=== PATIENT | male | born 1940 | race Caucasian/White ===

== ENCOUNTER 2023-11-24 15:23 | Outpatient (CLI) | payer MEDICARE, OTHER ==
--- NOTE | 2023-11-24 17:21 | XRAY Report ---
PROCEDURE: Calcaneus 2+V LT INDICATIONS: LEFT HEEL WOUND TECHNIQUE: Two views of the calcaneus were acquired. COMPARISON: None. FINDINGS: Bones: No fractures or dislocations. No suspicious bony lesions. Soft tissues: Shallow ulceration involving posterior aspect of left heel is seen. No suspicious calci fications. Achilles tendon appears normal. IMPRESSION: No acute bony abnormality. No radiographic evidence of osteomyelitis. Shallow ulceration over posteri or aspect of left heel. Reviewed by: Rigo Dewey MD on 11/24/2023 5:20 PM PDT Approved by: Rigo Dewey MD on 11/24/2023 5:20 PM PDT Station ID: [id number]
== END 2023-11-24 15:24 | disposition home or self-care (01) ==
LOC: DI 15:23
PROVIDERS: ATTEND Family Medicine
DX: E11.621 Type 2 diabetes mellitus with foot ulcer (principal); L97.422 Non-pressure chronic ulcer of left heel and midfoot with fat layer exposed; L08.9 Local infection of the skin and subcutaneous tissue, unspecified

== ENCOUNTER 2023-11-24 15:53 | Outpatient (CLI) | payer MEDICARE, OTHER ==
[2023-11-24 16:07] LABS: BASOPHILS # (AUTO) 0.1 10^3/uL (0.0-0.1); BASOPHILS % (AUTO) 0.4 %; EOSINOPHILS # (AUTO) 0.1 10^3/uL (0.0-0.7); EOSINOPHILS % (AUTO) 0.4 %; HCT - HEMATOCRIT 41.5 % (42.0-52.0); LYMPHOCYTES # (AUTO) 1.5 10^3/uL (1.5-3.5); LYMPHOCYTES % (AUTO) 8.6 %; MEAN CORPUSCULAR HEMOGLOBIN 30.7 pg (27.0-31.0); MEAN CORPUSCULAR HGB CONC 31.3 g/dL (32.0-36.0); MEAN CORPUSCULAR VOLUME 97.9 fL (80.0-94.0); MEAN PLATELET VOLUME 10.6 fL (7.4-11.4); MONOCYTES # (AUTO) 1.2 10^3/uL (0.0-1.0); MONOCYTES % (AUTO) 6.8 %; NEUTROPHILS # (AUTO) 14.2 10^3/uL (1.5-6.6); NEUTROPHILS % (AUTO) 83.4 %; PLT - PLATELET COUNT 367 10^3/uL (130-450); RED BLOOD COUNT 4.24 10^6/uL (4.70-6.10)
[2023-11-24 16:20] LABS: CRP - C-REACTIVE PROTEIN 0.5 mg/dL (<0.5)
[2023-11-24 16:25] LABS: ESTIMATED AVERAGE GLUCOSE 258 mg/dL (70-100); HEMOGLOBIN A1c% 10.6 % (4.27-6.07)
[2023-11-24 17:14] LABS: ALBUMIN 3.8 g/dL (3.2-5.5); ALBUMIN/GLOBULIN RATIO 1.3 (1.0-2.2); BILIRUBIN,TOTAL 0.4 mg/dL (0.2-1.0); CALCIUM 9.8 mg/dL (8.5-10.3); CREATININE 0.9 mg/dL (0.6-1.3); POTASSIUM 4.6 mmol/L (3.5-4.5); TOTAL PROTEIN 6.8 g/dL (6.4-8.9)
== END 2023-11-24 15:54 | disposition home or self-care (01) ==
LOC: LAB 15:53
PROVIDERS: ATTEND Family Medicine
DX: E11.621 Type 2 diabetes mellitus with foot ulcer (principal); L97.422 Non-pressure chronic ulcer of left heel and midfoot with fat layer exposed; L08.9 Local infection of the skin and subcutaneous tissue, unspecified
CPT/HCPCS: 36415; 80053; 83036; 85025; 85651; 86140

== ENCOUNTER 2024-02-10 10:59 | Outpatient (CLI) | payer MEDICARE, OTHER ==
[2024-02-10 11:15] LABS: BASOPHILS # (AUTO) 0.1 10^3/uL (0.0-0.1); BASOPHILS % (AUTO) 0.5 %; EOSINOPHILS # (AUTO) 0.1 10^3/uL (0.0-0.7); EOSINOPHILS % (AUTO) 0.9 %; HCT - HEMATOCRIT 40.5 % (42.0-52.0); HGB - HEMOGLOBIN 12.4 g/dL (14.0-18.0); LYMPHOCYTES # (AUTO) 1.4 10^3/uL (1.5-3.5); LYMPHOCYTES % (AUTO) 12.6 %; MEAN CORPUSCULAR HGB CONC 30.6 g/dL (32.0-36.0); MEAN CORPUSCULAR VOLUME 94.8 fL (80.0-94.0); MEAN PLATELET VOLUME 10.8 fL (7.4-11.4); MONOCYTES # (AUTO) 0.5 10^3/uL (0.0-1.0); MONOCYTES % (AUTO) 4.8 %; NEUTROPHILS # (AUTO) 8.7 10^3/uL (1.5-6.6); NEUTROPHILS % (AUTO) 80.9 %; PLT - PLATELET COUNT 338 10^3/uL (130-450); RED BLOOD COUNT 4.27 10^6/uL (4.70-6.10); RED CELL DISTRIBUTION WIDTH 13.8 % (12.0-15.0); WHITE BLOOD COUNT 10.8 x10^3/uL (4.8-10.8)
[2024-02-10 12:50] LABS: ESTIMATED AVERAGE GLUCOSE 226 mg/dL (70-100); HEMOGLOBIN A1c% 9.5 % (4.27-6.07)
[2024-02-10 12:57] LABS: ALBUMIN 3.9 g/dL (3.2-5.5); ALBUMIN/GLOBULIN RATIO 1.1 (1.0-2.2); BILIRUBIN,TOTAL 0.4 mg/dL (0.2-1.0); CALCIUM 9.9 mg/dL (8.5-10.3); CREATININE 0.8 mg/dL (0.6-1.3); MAGNESIUM 1.4 mg/dL (1.7-2.3); POTASSIUM 4.5 mmol/L (3.5-4.5); TOTAL PROTEIN 7.3 g/dL (6.4-8.9)
== END 2024-02-10 11:00 | disposition home or self-care (01) ==
LOC: LAB 10:59
PROVIDERS: ATTEND Family Medicine
DX: I10 Essential (primary) hypertension (principal); E55.9 Vitamin D deficiency, unspecified; E11.29 Type 2 diabetes mellitus with other diabetic kidney complication; G20.C Parkinsonism, unspecified; L97.509 Non-pressure chronic ulcer of other part of unspecified foot with unspecified severity
CPT/HCPCS: 36415; 80053; 82306; 82607; 82746; 83036; 83735; 85025

== ENCOUNTER 2024-04-13 20:58 | Outpatient (CLI) | payer MEDICARE, OTHER | END 2024-04-13 23:59 | disposition critical access hospital (66) | LOC: EMS 20:58 | DX: S01.01XA Laceration without foreign body of scalp, initial encounter (principal); W05.0XXA Fall from non-moving wheelchair, initial encounter; Y93.89 Activity, other specified; Y92.000 Kitchen of unspecified non-institutional (private) residence as the place of occurrence of the external cause | CPT/HCPCS: A0425; A0429 ==

== ENCOUNTER 2024-04-13 21:19 | Emergency (ER) | payer MEDICARE, OTHER ==
--- NOTE | 2024-04-13 21:31 | ED Physician Documentation ---
History of Present Illness - Stated complaint Stated Complaint: GLF/LAC TO HEAD - Chief complaint Chief Complaint: Trauma Hd/Nk - History obtained from History obtained from: EMS - Additonal information Additional information: 83-year-old male with history of Alzheimer's dementia presents for fall from wheelchair with head injury. Patient fell forward out of his wheelchair and struck his head against the ground. No reported loss of consciousness, patient is not on blood thinners. Patient pleasantly demented on arrival, he denies pain, does not remember falling. Review of Systems Unable to obtain: Dementia PD PAST MEDICAL HISTORY - Present Medications Home Medications: Ambulatory Orders Medication Instructions Recorded Confirmed Carbidopa/Levodopa [Rytary ER PO 5XD 11/17/23 48.75 mg-195 mg Cap] Cholecalciferol (Vitamin D3) 11/17/23 [Vitamin D3] Donepezil HCl [Aricept] 10 mg PO DAILY 11/17/23 11/17/23 Dulaglutide [Trulicity] 0.75 mg SUBQ DAILY 11/17/23 11/17/23 Empagliflozin [Jardiance] 25 mg PO DAILY 11/17/23 11/17/23 Finasteride [Proscar] 5 mg PO 11/17/23 Metformin HCl 1,000 mg PO BID 11/17/23 11/17/23 Rasagiline [Azilect] 11/17/23 Simvastatin [Zocor] 20 mg PO QPM 11/17/23 11/17/23 Tamsulosin [Flomax] 0.4 mg PO DAILY 11/17/23 11/17/23 Vitamin B Complex 11/17/23 Amox/Clav 875/125 [Augmentin 1 tablet PO Q12H 14 Days #28 tablet 12/30/23 875/125 Tab] Amox/Clav 875/125 [Augmentin 1 tablet PO Q12H 14 Days #28 tablet 01/27/24 875/125 Tab] Amox/Clav 875/125 [Augmentin 1 tablet PO Q12H 7 Days #14 tablet 03/02/24 875/125 Tab] Amoxicillin/Potassium Clav See Rx Instructions .ROUTE 03/10/24 [Augmentin 250-62.5 mg/5 ml] .COMPLEX 7 Days #210 ml - Allergies Allergies/Adverse Reactions: Allergies Allergy/AdvReac Type Severity Reaction Status Date / Time No Known Drug Allergies Allergy Verified 04/13/24 21:33 PD ED PE NORMAL - Vitals Vital signs reviewed: Yes - General General: No acute distress, Other (Oriented to self) - HEENT HEENT: PERRL, EOMI, Other (small 1.5cm abrasion top of scalp) - Respiratory Respiratory: No respiratory distress - Abdomen Abdomen: Soft, Non tender, Non distended - Derm Derm: Normal color, Warm and dry - Neuro Neuro: 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 No use of blood thinners. CT brain and C-spine negative for acute traumatic findings. Wound cleaned by staff and bandage applied. Family arrived to take patient home in stable condition. Departure - Departure Disposition: 01 Home, Self Care Clinical Impression: Closed head injury, Fall from wheelchair Condition: Stable Instructions: ED Head Injury Closed Comments: The CTs of your brain and neck were normal today. Keep the Band-Aid on the head for the next 24 hours, you can reapply as needed. Apply ice to areas of s welling and give Tylenol as needed for pain. Forms: PCP List Discharge Date/Time: 04/13/24 22:52
--- NOTE | 2024-04-13 22:10 | CT Report ---
PROCEDURE: Head WO INDICATIONS: glf, head inj TECHNIQUE: Noncontrast 4.5 mm thick angled axial sections acquired from the foramen magnum to the vertex. For r adiation dose reduction, the following was used: automated exposure control, adjustment of mA and/or kV according to patient size. COMPARISON: None. FINDINGS: Image quality: Excellent. CSF spaces: Basal cisterns are patent. No extra-axial fluid collections. Ventricles are symmetric in size and shape. Brain: No midline shift. No intracranial masses or hemorrhage. Hypodensities in the subcortical and periventricular white matter are most commonly seen in setting of chronic microvascular ischemic susan nges. Age-related cerebral and cerebellar volume loss is seen. Intracranial vascular calcifications a re noted in the internal carotid arteries. Skull and face: Calvarium and visualized facial bones are intact, without suspicious lesions. Sinuses: Visualized sinuses and mastoids are clear. IMPRESSION: 1.No acute intracranial pathology. 2.Chronic microvascular ischemic changes and generalized parenchymal volume loss. Reviewed by: Micah Jules MD on 04/13/2024 10:09 PM PDT Approved by: Micah Jules MD on 04/13/2024 10:09 PM PDT Station ID: [id number]
--- NOTE | 2024-04-13 22:12 | CT Report ---
PROCEDURE: Cervical Spine WO INDICATIONS: glf, head inj TECHNIQUE: Noncontrast 3 mm thick sections acquired from the skull base to the T4 level. Sagittal and coronal r eformats were then constructed. For radiation dose reduction, the following was used: automated exp osure control, adjustment of mA and/or kV according to patient size. COMPARISON: None. FINDINGS: Image quality: Excellent. Bones: No acute fractures or dislocations. Visualized superior ribs are intact. Multilevel disc sp evangelist narrowing and degenerative endplate changes. Multilevel facet hypertrophy. Soft tissues: Prevertebral soft tissues are normal in thickness. No paravertebral hematomas. No ap ical pneumothoraces. IMPRESSION: No acute, displaced fracture or traumatic subluxation. Moderate to severe multilevel spondylosis. Reviewed by: Micah Jules MD on 04/13/2024 10:11 PM PDT Approved by: Micah Jules MD on 04/13/2024 10:11 PM PDT Station ID: [id number]
[2024-04-13 22:48] VITALS: BP 145/77; O2SAT 99
== END 2024-04-13 22:52 | disposition home or self-care (01) ==
LOC: EDUNIT# → ED 21:19
DX: S09.90XA Unspecified injury of head, initial encounter (principal); S00.01XA Abrasion of scalp, initial encounter; W05.0XXA Fall from non-moving wheelchair, initial encounter; Y93.89 Activity, other specified; Y92.009 Unspecified place in unspecified non-institutional (private) residence as the place of occurrence of the external cause
CPT/HCPCS: 99283; 99284